=== PATIENT | male | born 1945 | race Caucasian/White ===

== ENCOUNTER → 2021-04-08 | Outpatient (CLI) | payer MEDICARE ==
[~2021-04-08] MED LIST: EFFIENT10 MG; HYDROCODON-ACE1 EAC7 PO; LEVOTHYROXIN0.075 MG; LIPITOR; LOPRESSOR25; PRILOSEC 20 MG20 MG PO
== END ==
LOC: M.RAD 15:47
PROVIDERS: ATTEND Family Medicine
DX: R06.02 Shortness of breath (principal)